=== PATIENT | male | born 1975 | race Caucasian/White ===

== ENCOUNTER 2019-10-08 12:13 | Emergency (ER) | payer OTHER ==
[~2019-10-08] VITALS: Ht 180.3 cm; Wt 105.7 kg
== END 2019-10-08 13:47 | disposition home or self-care (01) ==
LOC: ER 12:13
DX: S61.022A Laceration with foreign body of left thumb without damage to nail, initial encounter (principal); W45.8XXA Other foreign body or object entering through skin, initial encounter; Y93.89 Activity, other specified; Y92.69 Other specified industrial and construction area as the place of occurrence of the external cause; Y99.8 Other external cause status